=== PATIENT | male | born 1970 | race Caucasian/White ===

== ENCOUNTER 2023-11-25 13:15 | Emergency (ER) | payer OTHER ==
[2023-11-25] MEDS ORDERED: Ketorolac Tromethamine 30 MG (1 mL) VIAL ONE (13:48)
[2023-11-25] MEDS ORDERED: Lidocaine 4% Patch TD SCH (15:00)
[2023-11-26] MEDS ORDERED: Transdermal Patch Removal TOP SCH (03:00)
== END 2023-11-25 15:30 | disposition home or self-care (01) ==
LOC: CSHERS 13:15
DX: M48.02 Spinal stenosis, cervical region (principal); M54.12 Radiculopathy, cervical region; F17.220 Nicotine dependence, chewing tobacco, uncomplicated
CPT/HCPCS: 72040; 96372; J1885